=== PATIENT | male | born 1940 | race Caucasian/White ===

== ENCOUNTER 2018-06-21 12:22 | Emergency (ER) | payer MEDICARE ==
[~2018-06-21] VITALS: Ht 167.6 cm; Wt 61.2 kg
[2018-06-21 12:26] VITALS: BP_SYST 148
--- NOTE | 2018-06-21 14:53 | NUR ---
Patient to ER bed 6 to gown for evaluation. Side rails up. Report given to Calin VEGA.
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
--- NOTE | 2018-06-21 15:30 | NUR ---
Dr. Quinones at bedside assessing patient.
--- NOTE | 2018-06-21 16:12 | NUR ---
Patient to be transfered to [facility]. Awaiting transfer info.
--- NOTE | 2018-06-21 17:20 | NUR ---
Patient laying in bed. at bedside. Bed in lowest position
--- NOTE | 2018-06-21 18:55 | NUR ---
Updated patient on status of Camacho's transfer; still waiting on bed for transport. Patient laying in bed watching TV. Provided with warm blanket. Bed in lowest position.
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
--- NOTE | 2018-06-21 19:23 | NUR ---
Called [facility]. Gave report to ED nurse.
[2018-06-21 19:50] VITALS: BP_SYST 157
--- NOTE | 2018-06-21 19:50 | NUR ---
1950 - Patient to be transferred to [facility]. Is being transferred due to higher level of care. Receiving facility has accepting physician and available space. ER physician has signed transfer form. Patient or responsible green party has agreed to transfer and signed form. Patient belongings inventoried and will be sent with patient. Copy of nursing notes, lab reports, EKG, Physicians Orders and X-rays to be sent with patient. Report called to ED RN at receiving facility. Receiving physician is Jose Francisco. [facility] been called for transfer.
== END 2018-06-21 19:50 | disposition short-term general hospital (02) ==
LOC: SED 12:22
DX: S22.32XA Fracture of one rib, left side, initial encounter for closed fracture (principal); S22.078A Other fracture of T9-T10 vertebra, initial encounter for closed fracture; S22.088A Other fracture of T11-T12 vertebra, initial encounter for closed fracture; S16.1XXA Strain of muscle, fascia and tendon at neck level, initial encounter; I48.91 Unspecified atrial fibrillation; I10 Essential (primary) hypertension; V43.52XA Car driver injured in collision with other type car in traffic accident, initial encounter; Y93.89 Activity, other specified; Y92.410 Unspecified street and highway as the place of occurrence of the external cause; Y99.8 Other external cause status
CPT/HCPCS: 72125-TC; 99285